=== PATIENT | female | born 1975 | race Caucasian/White ===

== ENCOUNTER 2017-07-01 20:55 | Emergency (ER) | payer OTHER ==
[~2017-07-01] VITALS: Ht 165.1 cm; Wt 176.3 kg
[~2017-07-01 20:55] MED LIST: ASPIR-LOW81 MG PO; BUSPAR15 MG PO; CELEXA40 MG PO; CITALOPRAM HBR10 MG PO; COZAAR25 MG PO; FENOGLIDE120 MG PO; FLEXERIL10 MG PO; HYDROCODON-ACE1 EAC7 PO; IRON325 M1 PO; K-DUR20 MEQ PO; KEFLEX500 MG PO; LASIX20 MG PO; LOSARTAN POTASS25 MG; MACROBID100 MG PO; MEDROL DOSEPAK4 MG PO; MOTRIN600 MG PO; MOTRIN800 MG PO; NAPROSYN500 MG PO; NAPROXEN500 MG PO; NOHOMEMEDS; NORCO 5/3251 TABLET PO; PERCOCET 5/31 TABLET PO; PREDNISONE10 MG PO; PREMARIN0.625 MG PO; SKELAXIN400 M1 PO; SKINNY FIBER PO; SPRINTEC1 EACH PO; TORADOL10 MG PO; ULTRAM50 MG PO; VALIUM5 MG PO
[2017-07-01 21:28] LABS: HEMATOCRIT 38.3 % (36.0-46.0); MCH 23.8 PG (29.0-34.0); MCHC 31.6 G/DL (30.0-36.0); MCV 75.4 FL (83-99); MEAN PLAT.VOLUME 10.2 uM^3 (9.5-12.4); PLATELET COUNT 356 K/uL (156-360); RBC DIS.WIDTH-CV 14.6 % (11.8-14.6); RBC DIS.WIDTH-SD 39.6 % (39-53); RED BLOOD COUNT 5.08 M/uL (3.80-5.20); WHITE BLOOD COUNT 13.3 K/uL (4.1-10.2)
[2017-07-01 21:41] LABS: CHLORIDE 104 mEq/L (99-109); POTASSIUM 3.7 mEq/L (3.7-5.4); SODIUM 140 mEq/L (136-147)
[2017-07-01 21:43] LABS: GLUCOSE 81 mg/dL (70-99)
[2017-07-01 21:44] LABS: ANION GAP 11 MEQ/L (2-14)
[2017-07-01 21:47] LABS: GFR ESTIMATE (CALCULATED) > 59 mL/min/
[2017-07-01 21:48] LABS: UREA NITROGEN (BUN) 14 mg/dL (9-23)
[2017-07-01 21:53] LABS: TROP-I INTERPRETATION NEGATIVE; TROPONIN-I < 0.01 ng/mL (0.0-0.30)
[2017-07-01 23:28] VITALS: BP 154/93
== END 2017-07-01 23:31 | disposition home or self-care (01) ==
LOC: EME → EDBD 20:55 → EME 23:31
PROVIDERS: Emergency Medicine
DX: I10 Essential (primary) hypertension (principal); E86.0 Dehydration; Z87.891 Personal history of nicotine dependence
CPT/HCPCS: 80048; 84484; 85027; 93005; 99281; 99284; J7030

== ENCOUNTER 2017-10-26 15:32 | Emergency (ER) | payer OTHER ==
[~2017-10-26] VITALS: Ht 165.1 cm; Wt 178.0 kg
[2017-10-26 19:25] LABS: ADD MIUA? NO; BILIRUBIN NEGATIVE; BLOOD NEGATIVE; COLOR YELLOW ((YELLOW)); GLUCOSE (STRIP) NEGATIVE; KETONES NEGATIVE; LEUKOCYTES NEGATIVE; NITRITE NEGATIVE; PROTEIN (STRIP) 30; SPECIFIC GRAVITY 1.024 (1.000-1.030); UCUL ADDED? NO; UROBILINOGEN 0.2 MG/DL (0.2-1.0)
[2017-10-26 19:54] LABS: HEMATOCRIT 38.8 % (36.0-46.0); MCH 24.7 PG (29.0-34.0); MCHC 31.7 G/DL (30.0-36.0); MCV 77.9 FL (83-99); MEAN PLAT.VOLUME 10.9 uM^3 (9.5-12.4); PLATELET COUNT 383 K/uL (156-360); RBC DIS.WIDTH-CV 14.6 % (11.8-14.6); RBC DIS.WIDTH-SD 40.6 % (39-53); RED BLOOD COUNT 4.98 M/uL (3.80-5.20); WHITE BLOOD COUNT 11.6 K/uL (4.1-10.2)
[2017-10-26 19:57] LABS: CHLORIDE 100 mEq/L (99-109); POTASSIUM 3.7 mEq/L (3.7-5.4); SODIUM 140 mEq/L (136-147)
[2017-10-26 20:00] LABS: GLUCOSE 95 mg/dL (70-99)
[2017-10-26 20:01] LABS: ANION GAP 12 MEQ/L (2-14)
[2017-10-26 20:02] LABS: TOTAL BILIRUBIN 0.3 mg/dL (0.0-1.0)
[2017-10-26 20:03] LABS: ALKALINE PHOSPHATASE 87 IU/L (3-129); GFR ESTIMATE (CALCULATED) > 59 mL/min/
[2017-10-26 20:04] LABS: UREA NITROGEN (BUN) 13 mg/dL (9-23)
[2017-10-26 20:07] LABS: LIPASE 14 U/L (1.0-51.0)
[2017-10-26 20:12] LABS: QUANTITATIVE HCG < 4.0 MIU/ML
[2017-10-26] MEDS ORDERED: ZOFRAN4 MG PO (20:14)
[2017-10-26 20:23] VITALS: BP 111/83
== END 2017-10-26 20:31 | disposition home or self-care (01) ==
LOC: EME 15:32
DX: R11.2 Nausea with vomiting, unspecified (principal); R19.7 Diarrhea, unspecified; I10 Essential (primary) hypertension; F41.9 Anxiety disorder, unspecified; F32.9 Major depressive disorder, single episode, unspecified; J45.909 Unspecified asthma, uncomplicated; Z90.49 Acquired absence of other specified parts of digestive tract; Z87.891 Personal history of nicotine dependence
CPT/HCPCS: 80053; 81003; 83690; 84702; 85027; 99281; 99284